=== PATIENT | female | born 1955 | race Caucasian/White ===

== ENCOUNTER 2017-06-21 08:19 | Outpatient (CLI) | payer BC | END 2017-06-21 08:20 | disposition home or self-care (01) | LOC: BICMAMMO 08:19 | PROVIDERS: ATTEND Family Medicine | DX: Z12.31 Encounter for screening mammogram for malignant neoplasm of breast (principal); R92.1 Mammographic calcification found on diagnostic imaging of breast | CPT/HCPCS: 77063; 77067 ==

== ENCOUNTER 2017-09-17 18:20 | Observation (INO) | payer BC ==
[2017-09-17 19:01] VITALS: BMI 22.4
--- NOTE | 2017-09-17 21:28 | PDOC.FPRHP ---
- History of Present Illness Chief Complaint: Headache History of Present Illness: 62 year old female presents with a 3 day history of gradually worsening SAN described as a pressure-like pain in the maxillary region and behind the eyes. The pain got as bad as a 10/10 today which prompted her visit to the outside ER. She failed outpatient treatment with tylenol and advil. After administration of toradol, reglan, and fluids, the patient's pain decreased to a 2/10. The pain is gradually increasing with time. Patient states the she does not get headaches very often. She has had several sinus infections in the past, and this done seem similar in terms of the pain. Additionally, patient recently saw the dentist who determined that she would need a root canal. She has been on amoxicillin since Monday. Patient had some mild nausea which resolved after being given the medications in outside ER as well as fluids. In outside ED, patient was found to be tachycardic to the 130's. Despite 3L of fluid, the HR remained elevated in the 120's. Patient states she has had elevated HR in the past, but it has never persisted like this previously. Patient denies any past history of thyroid dysfunction. - Allergies/Adverse Reactions Allergies Allergy/AdvReac Type Severity Reaction Status Date / Time Sulfa (Sulfonamide Allergy Verified 09/17/17 19:22 Antibiotics) - Home Medications Medication Instructions Recorded Confirmed Type Dapagliflozin/Metformin HCl 1 tab PO BID-AC 09/17/17 09/17/17 History [Xigduo Xr 5 mg-1,000 mg Tablet] - History PMHx: Type II DM PSHx: Tonsillectomy FHx: Adopted and thinks biological mother has history of CVA Social: Denies alcohol, tobacco or drug use. - Review of Systems General: denies: fever/chills, weight/appetite/sleep changes Eyes: denies: eye pain, vision changes ENT: reports: other. denies: nasal congestion Respiratory: denies: cough, congestion Cardiovascular: denies: chest pain, palpitation, edema Gastrointestinal: reports: nausea. denies: vomiting, diarrhea, constipation, abdominal pain Genitourinary: denies: dysuria, polyuria Skin: denies: rashes, lesions, jaundice Musculoskeletal: denies: tenderness Neurological: reports: other (Headache x3 days.). denies: syncope, seizure Psychological: denies: anxiety, depression - Vital signs BP: [141/72] HR: [115] RR: [16] Tmax: [100.0 F] Pox: [92]% on [RA] Wt: [66 kg ] - Physical Exam Constitutional: NAD, awake, alert and oriented, well developed HEENT: normocephalic and atraumatic -HEENT: Tender to palpation over maxillary sinuses. Right pupil non-reactive to light, fixed and dilated. Neck: supple Heart: no murmurs/rubs/gallops -Heart: Tachycardic Lungs: CTAB, no respiratory distress, good air movement, no rales/rhonchi Abdomen: soft, non-tender, bowel sounds present, no masses/distention Musculoskeletal: normal structure, normal tone Neurological: no focal deficit, CN II-XII intact Skin: no rash/lesions, good turgor, capillary refill <2 seconds Heme/Lymphatic: no unusual bruising or bleeding, no purpura, no petechia Psychiatric: normal mood and affect, good judgment and insight, intact recent and remote memory FMR H&P: Results - Labs Additional comment: CBC wnl CMP wnl EKG sinus tachycardia, incomplete RBBB UA negative Troponin negative - Radiology Interpretation CT scan - head Status: report reviewed by me Additional comment: No evidence of acute intracranial bleed. Did not comment on sinuses. FMR H&P: A/P - Problem List (1) Headache Current Visit: Yes Status: Acute Code(s): R51 - HEADACHE Qualifiers: Headache type: unspecified Headache chronicity pattern: acute headache Intractability: not intractable Qualified Code(s): R51 - Headache (2) Tachycardia Current Visit: Yes Status: Acute Code(s): R00.0 - TACHYCARDIA, UNSPECIFIED (3) Type II diabetes mellitus Current Visit: Yes Status: Acute Qualifiers: Diabetes mellitus correction insulin use: without intermodal dispatcher use - Plan 1. Persistent tachycardia - Sinus rhythm with incomplete RBBB - Asymptomatic - No cardiac history - Consider consulting cards in AM - Telemetry monitoring - TSH pending - CBC wnl 2. Headache, suspect sinus headache vs. tension vs. migraine - Improved with toradol, reglan, and fluids - Will continue toradol and reglan for symptomatic treatment - Patient currently on amoxicillin for tooth infection (in need of root canal) - CT of brain did not comment on sinuses 3. Type II DM - Continue home medication 4. DVT ppx: SCDs 5. Code status: Full Disposition/LOS: Dispo: Admit to telemetry for observation. Consider dispo tomorrow pending cardiology recs. FMR H&P: Upper Level - Pertinent history 62 yo female with hx of diabetes presents after she had persistent severe headache for appx 3 days. She has no hx of tachycardia or palpitations. She had frontal, bilateral pulsing headache that improved with benadryl, toradol, and reglan. She was found to have sinus tachycardia that did not improve with fluids. - Pertinent findings Gen: WD/WN in no acute distress HEENT: NC/AT, JESUS,EOMI, MMM Resp: CTA, normal work of breathing CV: tachycardic, normal S1, S2, no murmur ABD: Soft nontender, nondistended Extremities: no edema, pulses 2+ Psych: calm, normal affect and mood Neuro: strength, sensation normal. DTR 2+ Hgb 14.5 Trop neg x2 BMP negative (see scanned report from outside ER) - Plan Date/Time: 09/17/172127 ILebron, have evaluated this patient and agree with findings/plan as outlined by business intern resident. Pertinent changes/additions are listed here. Attending Addendum - Attending Addendum Date/Time: 09/17/17 [id number] I personally evaluated the patient and discussed the management with Dr. Stein. The H&P is repeated by me. I agree with the History, Examination, Assessment and Plan documented above with any addition or exceptions noted below.
[2017-09-17] MEDS ORDERED: Dextrose 50% Abboject 50 ML SYRINGE SLOW IVP PRN (21:50)
[2017-09-17] MEDS ORDERED: Acetaminophen 325 MG TAB PO PRN (21:50)
[2017-09-17] MEDS ORDERED: Dextrose 5% in Water 1,000 ML IV PRN (21:50)
[2017-09-17] MEDS ORDERED: HumaLOG 300 UNITS/3 ML VIAL SC PRN (21:50)
[2017-09-17] MEDS ORDERED: Ondansetron ODT 4 MG TAB PO PRN (21:50)
[2017-09-17] MEDS: Ketorolac Tromethamine 30 MG/ML VIAL IVP PRN (22:45)
[2017-09-18] MEDS: Ketorolac Tromethamine 30 MG/ML VIAL IVP PRN ×2 (06:06→11:29)
[2017-09-18 07:02] LABS: #Eosinphils 0.1 thou/uL (0.0-0.7); #Lymphocytes 0.9 thou/uL (1.20-3.40); #Monocytes 0.7 thou/uL (0.11-0.59); #Neutrophils 8.3 thou/uL (1.40-6.50); %Basophils 0.5 % (0.0-1.0); %Eosinophils 0.8 % (0.0-10.0); %Lymphocytes 8.7 % (21.0-51.0); %Monocytes 6.5 % (0.0-10.0); %Neutrophils 83.5 % (42.0-75.0); Hemoglobin 13.4 g/dL (12.0-16.0); Mean Corpuscular HGB CONC 33.7 g/dL (32.0-36.0); Mean Corpuscular Hemoglobin 31.6 pg (27.0-31.0); Mean Corpuscular Volume 93.9 fl (81.0-99.0); Mean Platelet Volume 6.7 fL (7.4-10.4); Platelet Count 251 thou/uL (130-400); RBC Distribution Width 11.7 % (11.5-14.5); Red Blood Cell (RBC) Count 4.25 mill/uL (4.20-5.40); White Blood Cell (WBC) Count 9.9 thou/uL (4.8-10.8)
[2017-09-18 07:16] LABS: Anion Gap 14 mmol/L (10-20); BUN (Urea Nitrogen) 13 mg/dL (9.8-20.1); Calc. Creatinine Clearance 74 mL/min (70-130); Calcium 8.9 mg/dL (7.8-10.44); Carbon Dioxide 25 mmol/L (23-31); Chloride 101 mmol/L (98-107); Estimated GFR-MDRD 71; Glucose 121 mg/dL (80-115); Potassium 3.7 mmol/L (3.5-5.1); Sodium 136 mmol/L (136-145)
[2017-09-18] MEDS: Metoclopramide HCl 10 MG/2 ML VIAL IVP PRN ×2 (08:25→14:19)
--- NOTE | 2017-09-18 09:11 | PDOC.FM ---
- Subjective Subjective: No acute events overnight. Pt does report persistent headache worse on the left retro-orbital and relieved by toradol and reglan. She does c/o of lower jaw pain and sinus pain which she also describes as a "headache." Associated photophobia and phonophobia. This pain has also improved with current medications. She denies vision changes, sob, pleuritic type pain, abd pain, cp, palpitations, nvdc. - Objective Vital Signs & Weight: Vital Signs (12 hours) Temp Pulse Resp BP BP Pulse Ox 09/18/17 07:21 99.6 F 115 H 16 131/66 93 L 09/18/17 04:01 99.1 F 115 H 18 118/67 95 Weight Weight 65.952 kg Result Diagrams: 09/18/17 06:54 09/18/17 06:54 <Demetrius Beth - Last Filed: 09/18/17 09:13> - Objective Vital Signs & Weight: Vital Signs (12 hours) Temp Pulse Resp BP BP Pulse Ox 09/18/17 08:25 99.6 F 115 H 16 09/18/17 07:21 99.6 F 115 H 16 131/66 93 L 09/18/17 04:01 99.1 F 115 H 18 118/67 95 Weight Weight 65.952 kg Result Diagrams: 09/18/17 06:54 09/18/17 06:54 <Aris Garcia - Last Filed: 09/18/17 11:54> Phys Exam - Physical Examination Constitutional: NAD HEENT: PERRLA, moist MMs, sclera anicteric, 2+ tonsils Neck: no nodes, no JVD Respiratory: no wheezing, no rales, no rhonchi, clear to auscultation bilateral Cardiovascular: no significant murmur, no rub tachycardic Gastrointestinal: soft, non-tender, no distention, positive bowel sounds Musculoskeletal: no edema, pulses present Neurological: non-focal, normal sensation, moves all 4 limbs Lymphatic: no nodes Skin: no rash <Demetrius Beth - Last Filed: 09/18/17 09:13> Dx/Plan (1) Headache Code(s): R51 - HEADACHE Status: Acute QualifierTitle: Headache type: unspecified Headache chronicity pattern: acute headache Intractability: not intractable Qualified Code(s): R51 - Headache (2) Tachycardia Code(s): R00.0 - TACHYCARDIA, UNSPECIFIED Status: Acute (3) Type II diabetes mellitus Status: Acute QualifierTitle: Diabetes mellitus nursing home insulin use: without nursing home use - Plan Plan: 1. Headache, suspect sinus headache vs. cluster vs. migraine - Improved with toradol, reglan, and fluids - cont toradol reglan prn for pain - Pt currently on amoxicillin by dentist for oral infection; unfortunately, no comment on sinuses from CT report. 2. Persistent tachycardia - Sinus rhythm with incomplete RBBB - Pt is asymptomatic and has remained in sinus tach overnight on telemtry with occasional/sporadic PVCs -She has Tmax of 100 and is satting 92-95 on RA. She denies pleuritic type pain , sob and pain with deep inspiration 3. Type II DM - Continue home medication, no changes <Demetrius Beth - Last Filed: 09/18/17 09:13> Attending Addendum - Attending Addendum Date/Time: 09/18/17 1151 I personally evaluated the patient and discussed the management with Dr. Beth. I agree with the History, Examination, Assessment and Plan documented above with any addition or exceptions noted below. Patient here with improved headache. She will continue on current meds for control. She has multiple reasons to have headache including sinus disease and likely sinus infection, as well as L sided tooth pain that is being evaluated by her outpatient dentist. Will expand abx coverage to augmentin to help cover both issues. She continues to be tachycardic, and O2 sats are low 90s. Outpatient PCP shows HR 90-100s in recent clinic visits. Wells criteria 1.5, will check D-dimer and go from there. If PE excluded, patient should be stable for discharge for further workup in outpatient setting. EKG reviewed and there is no major evidence of RBBB, only sinus tachycardia. <Aris Garcia - Last Filed: 09/18/17 11:54>
[2017-09-18 12:31] LABS: CKMB 0.4 ng/mL (0-6.6); Troponin I Less than 0.010 ng/mL (< 0.028)
[2017-09-18 15:45] VITALS: BP 138/70; TEMP 99.3
[2017-09-18] MEDS ORDERED: Amoxicillin/Potassium Clav 500 MG TAB PO SCH (21:00)
--- NOTE | 2017-09-19 12:10 | DIS-2 ---
DATE OF SERVICE: 09/18/2017 LOCATION: [facility] in [place], [place] DATE OF ADMISSION: 09/17/2017 DATE OF DISCHARGE: 09/18/2017 RESIDENT PHYSICIAN: Demetrius Beth DO ADMITTING ATTENDING: Raf Jara MD DISCHARGE ATTENDING: Aris Garcia MD CONSULTS: None. PROCEDURES: None. PRIMARY DIAGNOSIS: Headache. SECONDARY DIAGNOSES: 1. Type 2 diabetes. 2. Dental infection. 3. Sinus tachycardia. DISCHARGE MEDICATIONS: 1. Tylenol 650 mg p.o. q.4 hours. 2. Augmentin 500 mg p.o. q.12 hours x7 days. 3. Xigduo 1 tab p.o. b.i.d. 4. Ibuprofen 800 mg p.o. q.8 hours p.r.n. for pain. DISCONTINUED MEDICATION: Amoxicillin. HISTORY OF PRESENT ILLNESS AND HOSPITAL COURSE: The patient is a 62-year-old female who originally p resented to the ED for a 3-day history of gradually worsening headache described as pressure-like donaldo n that was predominantly in the maxillary region and somewhat behind the eyes. The pain was describe d as 10/10, at which point she presented to the ED, she had attempted to take a Tylenol or Advil for her headache. However, this stopped, did not reduce her pain. On presentation to the ED, she was gi lizzy Toradol, Reglan, and fluids, at which point the patient's pain decreased to 2/10. She does repor t a history of sinus infections in the past and at the time of presentation, the quality and location of the pain seems similar in terms of her sinus headaches in the past. Importantly, she denies any nuchal rigidity, no decreased range of motion of her neck. There is no change in vision. The patien t is admitted for observation. Her pain was controlled with Reglan and Toradol, and subsequently req uired less of those medications and her pain was controlled on ibuprofen, Tylenol. On discharge, she denies any vision changes, shortness of breath, or nuchal rigidity. She additionally endorsed some jaw pain associated with headache which she was started previously on amoxicillin by a dentist for an oral infection which when we switched to Augmentin for better coverage of the infection. Overall, t he patient had uncomplicated hospital course. Pain was adequately controlled with Tylenol. Patient will discharged with instructions to follow up with her primary care provider within a week following discharge. DISPOSITION: The patient left the hospital in stable condition. DISCHARGE INSTRUCTIONS: 1. Location: Home. 2. Diet: Heart healthy, consistent carbohydrates. 3. Activity: Ad wolfgang. 4. Followup: Follow up with Dr. Gomes, primary care provider in 7-10 days following discharge.
== END 2017-09-18 16:30 | disposition home or self-care (01) ==
LOC: 2SW 18:28
PROVIDERS: ADMIT Family Medicine; ATTEND Family Medicine
DX: R00.0 Tachycardia, unspecified; E11.9 Type 2 diabetes mellitus without complications; Z79.84 Long term (current) use of oral hypoglycemic drugs; R51 Headache; Z90.89 Acquired absence of other organs; Z88.5 Allergy status to narcotic agent
CPT/HCPCS: 36415; 36416; 80048; 82553; 84443; 84484; 85025; 85379; 90471; 90732; 96374; 96375; 96376; G0009; G0378; J1885; J2765

== ENCOUNTER 2017-09-20 18:35 | Inpatient (IN) | payer BC ==
[2017-09-20] MEDS ORDERED: Acetaminophen 500 MG TAB ONE (18:42)
[2017-09-20 19:04] LABS: #Lymphocytes 1.4 thou/uL (1.20-3.40); #Monocytes 0.7 thou/uL (0.11-0.59); %Basophils 0.3 % (0.0-1.0); %Eosinophils 0.4 % (0.0-10.0); %Lymphocytes 13.3 % (21.0-51.0); %Monocytes 7.1 % (0.0-10.0); %Neutrophils 78.9 % (42.0-75.0); Hemoglobin 15.7 g/dL (12.0-16.0); Mean Corpuscular HGB CONC 34.8 g/dL (32.0-36.0); Mean Corpuscular Hemoglobin 31.9 pg (27.0-31.0); Mean Corpuscular Volume 91.4 fl (81.0-99.0); Mean Platelet Volume 6.8 fL (7.4-10.4); Platelet Count 307 thou/uL (130-400); RBC Distribution Width 11.5 % (11.5-14.5); Red Blood Cell (RBC) Count 4.91 mill/uL (4.20-5.40); White Blood Cell (WBC) Count 10.1 thou/uL (4.8-10.8)
[2017-09-20] MEDS ORDERED: Dexamethasone 10 MG/ML VIAL ONE (19:18)
[2017-09-20] MEDS ORDERED: cefTRIAXone\\ROCEPHIN 2 GM VIAL ONE (19:18)
[2017-09-20 19:19] LABS: ALT (SGPT) 16 U/L (8-55); AST (SGOT) 15 U/L (5-34); Albumin 4.7 g/dL (3.4-4.8); Alkaline Phosphatase 119 U/L (40-150); Anion Gap 16 mmol/L (10-20); BUN (Urea Nitrogen) 17 mg/dL (9.8-20.1); Bilirubin, Total 0.6 mg/dL (0.2-1.2); Calc. Creatinine Clearance 0 mL/min (70-130); Calcium 10.1 mg/dL (7.8-10.44); Carbon Dioxide 29 mmol/L (23-31); Chloride 92 mmol/L (98-107); Estimated GFR-MDRD 53; Globulin 3.5 g/dL (2.4-3.5); Glucose 117 mg/dL (80-115); Potassium 3.7 mmol/L (3.5-5.1); Protein, Total 8.2 g/dL (6.0-8.3); Sodium 133 mmol/L (136-145)
[2017-09-20 19:23] LABS: CKMB 0.4 ng/mL (0-6.6); Troponin I Less than 0.010 ng/mL (< 0.028)
[2017-09-20 19:33] LABS: Base Excess-Venous 4.3 mmol/L (0 (+/- 2.5)); Bicarbonate (HCO3v) 28.7 mmol/L (1.0-85.0); CO2 Tension (PvCO2) 40.8 mmHg (41.0-51.0); Calcium, Ionized 0.96 mmol/L (1.12-1.32); Hemoglobin - Calc 17.2 g/dL (12.0-18.0); O2 Tension (PvO2) 29.5 mmHg (35.0-45.0); Potassium 3.7 mmol/L (3.4-4.7); T. Carbon Dioxide 29.9 mmol/L (1.0-85.0); pH (Venous) 7.455 (7.35-7.45); vO2 Saturation-calc 59.6 % (94-98)
--- NOTE | 2017-09-20 20:05 | CT ---
BRAIN CT WITHOUT IV CONTRAST: 09/20/17 HISTORY: 62-year-old female with history of fever and headache, weakness and lethargy. No focal mass or midline shift. No intra or extra-axial hemorrhage. Sinuses and mastoids are clear. IMPRESSION: No acute intracranial process. No mass or bleed. POS: [facility]
[2017-09-20] MEDS ORDERED: Morphine 5 MG/ML SYRINGE ONE (20:11)
[2017-09-20] MEDS ORDERED: Ondansetron HCl/PF 4 MG/2 ML Vial ONE (20:11)
[2017-09-20] MEDS ORDERED: Lorazepam 2 MG/ML VIAL ONE (20:11)
[2017-09-20] MEDS ORDERED: Morphine 10 MG/ML VIAL ONE (20:12)
--- NOTE | 2017-09-20 20:19 | RAD ---
UPRIGHT PORTABLE CHEST ONE VIEW: 09/20/17 HISTORY: 62-year-old female with history of fever and headache, lethargy. COMPARISON: 02/25/03. FINDINGS: Monitor leads overlie the chest. Heart size is normal. The lungs are clear. IMPRESSION: No acute intrathoracic disease. Stable from prior study. POS: [facility]
[2017-09-20 20:20] LABS: Bilirubin Negative (Negative); Blood, Urine Small (Negative); Clarity CLEAR (Clear); Glucose, Urine (Dipstick) >=1000 mg/dL (Negative); Leukocyte Negative (Negative); Nitrite Negative (Negative); Protein, Urine (Dipstick) Negative (Neg-Trace); Specific Gravity, Urine 1.028 (1.002-1.036); Urobilinogen 0.2 mg/dL (0.2-1.0)
[2017-09-20 20:22] LABS: Bacteria/HPF None Seen HPF (None Seen); Hyaline Casts/LPF 0-3 HYALINE CAST LPF (0-3 Hyaline); Pathc Cast-AUWi Flag 0.14 (0-2.49); RBC/HPF 0-3 HPF (0-3); Squamous Epithelial None Seen HPF (0-3); WBC/HPF 0-3 HPF (0-3)
[2017-09-20 21:46] LABS: CSF Source CSF; Clarity Clear (Clear); Color Of CSF Supernatant COLORLESS (Colorless); Tube # 1; Tube # 2; Unspun CSF Color COLORLESS (Colorless)
[2017-09-20 21:59] LABS: RBC Count - Manual 2 /cumm (None Seen); WBC/NonHematics Count - Manual 61 /cumm (0-5)
[2017-09-20 22:03] LABS: CSF Source CSF; Clarity Clear (Clear); Tube # 4
[2017-09-20 22:09] LABS: RBC Count - Manual 2 /cumm (None Seen); WBC/NonHematics Count - Manual 80 /cumm (0-5)
[2017-09-20 22:30] LABS: Cell Count Non Hematic 24 %; Lymphocytes 65 %; Segmented Neutrophils 11 %
[2017-09-20 22:31] LABS: Cell Count Non Hematic 15 %; Lymphocytes 80 %; Segmented Neutrophils 5 %
[2017-09-20 23:19] LABS: CSF, Glucose 86 mg/dl (40-70); CSF, Protein 97 mg/dL (15-40)
--- NOTE | 2017-09-20 23:22 | PDOC.FPRHP ---
- History of Present Illness Chief Complaint: Headache History of Present Illness: Patient presents to the ED with 3-4d of headache. Pertinent PMH including DM2. She was discharged on 09/18 after being evaluated for tachycardia and headache. She states her headache was better when she left the hospital but acutely worsened today at about 10:30 PM. She denies any SAN at time of exam, 0/10, but on initial presentation to the ER was complaining of severe pain described as pressure. She states she has new onset neck stiffness which started tonight. She denies any focal weakness, no visual changes, no sensitivity to light, no N/ V. She denies any speech slurring but did have some dizziness. She tried advil at home but this did not relieve her pain. ED Course: Patient had a spinal tap and brain CT. She was given vancomycin, rocephin, decadron, tylenol, NS, morphine, zofran, and ativan. - Allergies/Adverse Reactions Allergies Allergy/AdvReac Type Severity Reaction Status Date / Time Sulfa (Sulfonamide Allergy Verified 09/17/17 19:22 Antibiotics) - Home Medications Medication Instructions Recorded Confirmed Type Dapagliflozin/Metformin HCl 1 tab PO BID-AC 09/17/17 09/21/17 History [Xigduo Xr 5 mg-1,000 mg Tablet] Acetaminophen [Tylenol Regular 650 mg PO Q4H PRN tab 09/18/17 09/21/17 Rx Strength] Amoxicillin/Potassium Clav 500 mg PO Q12HR #14 tab 09/18/17 Rx [Augmentin] Ibuprofen 800 mg PO Q8HR PRN #30 tablet 09/18/17 09/21/17 Rx Metoclopramide HCl [Reglan] 10 mg PO QID PRN #30 tab 09/18/17 Rx - History PMHx: Type II DM PSHx: Tonsillectomy FHx: Adopted and thinks biological mother has history of CVA Social: Denies alcohol, tobacco or drug use. - Review of Systems General: reports: fever/chills, fatigue. denies: weight/appetite/sleep changes , night sweats Eyes: denies: eye pain, vision changes ENT: denies: nasal congestion, rhinorrhea Respiratory: denies: cough, congestion, shortness of breath Cardiovascular: denies: chest pain, palpitation, orthopnea Gastrointestinal: denies: nausea, vomiting, diarrhea, abdominal pain, GI bleeding Genitourinary: denies: dysuria, polyuria Skin: denies: rashes, lesions, itching Musculoskeletal: denies: pain, tenderness, arthritis/arthralgias Neurological: denies: numbness, syncope, weakness Psychological: denies: anxiety, depression - Vital signs BP: 133/87 HR: 128 RR: 18 Tmax: 102.6 Pox: 95% on room air Wt: 56 - Physical Exam Constitutional: NAD, awake, alert and oriented -Constitutional: drowsy at time of examination but A&Ox3 HEENT: normocephalic and atraumatic, PERRLA, EOMI, grossly normal vision, TM's clear and intact, MMM, oropharynx clear -Neck: bends neck to 45 degrees, cannot touch chin to chest Heart: RRR, normal S1/S2, no murmurs/rubs/gallops Lungs: CTAB, no respiratory distress Abdomen: soft, bowel sounds present, no masses/distention Musculoskeletal: normal structure, ROM grossly normal Neurological: no focal deficit, CN II-XII intact, normal sensation -Neurological: cannot touch chin to chest No pain with passive leg raise Skin: no rash/lesions, good turgor, capillary refill <2 seconds -Skin: no genital or oral lesions Heme/Lymphatic: no unusual bruising or bleeding, no purpura Psychiatric: normal mood and affect FMR H&P: Results - Labs Result Diagrams: 09/21/17 04:39 09/21/17 04:39 Lab results: WBC 10.1 thou/uL (4.8-10.8) 09/20/17 18:52 Hgb 15.7 g/dL (12.0-16.0) 09/20/17 18:52 Hct 44.9 % (36.0-47.0) 09/20/17 18:52 MCV 91.4 fl (81.0-99.0) 09/20/17 18:52 Plt Count 307 thou/uL (130-400) 09/20/17 18:52 Neutrophils % 78.9 % (42.0-75.0) H 09/20/17 18:52 VBG pCO2 40.8 mmHg (41.0-51.0) L 09/20/17 19:30 VBG pO2 29.5 mmHg (35.0-45.0) L 09/20/17 19:30 Sodium 133 mmol/L (136-145) L 09/20/17 18:52 Potassium 3.7 mmol/L (3.5-5.1) 09/20/17 18:52 Chloride 92 mmol/L (98-107) L 09/20/17 18:52 Carbon Dioxide 29 mmol/L (23-31) 09/20/17 18:52 BUN 17 mg/dL (9.8-20.1) 09/20/17 18:52 Creatinine 1.06 mg/dL (0.6-1.1) 09/20/17 18:52 Glucose 117 mg/dL (80-115) H 09/20/17 18:52 Lactic Acid 1.3 mmol/L (0.5-2.2) 09/20/17 19:10 Calcium 10.1 mg/dL (7.8-10.44) 09/20/17 18:52 Total Bilirubin 0.6 mg/dL (0.2-1.2) 09/20/17 18:52 AST 15 U/L (5-34) 09/20/17 18:52 ALT 16 U/L (8-55) 09/20/17 18:52 Alkaline Phosphatase 119 U/L (40-150) 09/20/17 18:52 Ammonia 16 umol/L (18-72) L 09/20/17 19:19 CK-MB (CK-2) 0.4 ng/mL (0-6.6) 09/20/17 18:52 Serum Total Protein 8.2 g/dL (6.0-8.3) 09/20/17 18:52 Albumin 4.7 g/dL (3.4-4.8) 09/20/17 18:52 Urine Ketones 80 mg/dL (Negative) H 09/20/17 20:05 Urine Blood Small (Negative) H 09/20/17 20:05 Urine Nitrite Negative (Negative) 09/20/17 20:05 Ur Leukocyte Esterase Negative (Negative) 09/20/17 20:05 Urine RBC 0-3 HPF (0-3) 09/20/17 20:05 Urine WBC 0-3 HPF (0-3) 09/20/17 20:05 Ur Squamous Epith Cells None Seen HPF (0-3) 09/20/17 20:05 Urine Bacteria None Seen HPF (None Seen) 09/20/17 20:05 Laboratory Tests 09/20/17 09/20/17 09/20/17 19:30 20:05 21:20 POC VBG pH 7.455 H VBG pCO2 40.8 L Urine Nitrite Negative Ur Leukocyte Esterase Negative Fluid Tube Number Fluid Color Fluid Clarity Fluid WBC (Manual) Fluid RBC (Manual) Fluid Seg Neutrophil % CSF Glucose 86 H CSF Total Protein 97 H 09/20/17 21:20 POC VBG pH VBG pCO2 Urine Nitrite Ur Leukocyte Esterase Fluid Tube Number 4 Fluid Color Colorless Fluid Clarity Clear Fluid WBC (Manual) 80 H Fluid RBC (Manual) 2 H Fluid Seg Neutrophil % 11 CSF Glucose CSF Total Protein - Radiology Interpretation CT scan - head Status: image reviewed by me, report reviewed by me Additional comment: No acute process. FMR H&P: A/P - Problem List (1) Viral meningitis Current Visit: Yes Status: Acute Code(s): A87.9 - VIRAL MENINGITIS, UNSPECIFIED (2) Sinus tachycardia Current Visit: Yes Status: Acute Code(s): R00.0 - TACHYCARDIA, UNSPECIFIED (3) Dental infection Current Visit: Yes Status: Acute Code(s): K04.7 - PERIAPICAL ABSCESS WITHOUT SINUS (4) Type II diabetes mellitus Current Visit: No Status: Chronic Qualifiers: Diabetes mellitus terminal worker insulin use: without terminal worker use Diabetes mellitus complication status: with hyperglycemia Qualified Code(s): E11.65 - Type 2 diabetes mellitus with hyperglycemia - Plan # Viral meningitis - CSF WBC 81, Prot 97, Glu 87, Lymph 80% - unlikely bacterial based on CSF, check gram stain -received vanc, rocephin, decadron in ED - CT head negative - HSV/Enterovirus PCR pending - blood, urine, CSF cultures pending - Acyclovir 10mg/kg q8hrs until PCR negative -no Hx of HSV, no genital/oral lesions, no recent travel, sick contacts, or new sexual partners # Tachycardia - NS 100ml/hr - evaluated on last admit, sinus rhythm with incomplete RBB # Dental Infection - continue Augmentin - outpatient dental f/u # DM2 - home meds # PPx - lovenox # Code - full Disposition/LOS: inpatient, likely 3 midnight. PCP: Dr. Ary Gomes FMR H&P: Upper Level - Pertinent history 62 yo female has intermittent, but recurrent headache for about a week but came in tonight when her neck became stiff and she developed a fever. She was admitted for sinus tachycardia 2 days ago after she was treated in an outside ER for a migraine/tension type headache. She denies focal weakness, n/v/d. She denies vision changes. - Pertinent findings Gen: WD/WN female in no acute distress HEENT: NC/AT, JESUS,EOMI, MMM, patient can move neck appx 30 degrees in flexion and extension Resp: CTA, normal work of breathing CV: RRR, normal S1, S2, no murmur ABD: Soft nontender, nondistended Extremities: no edema, pulses 2+ Psych: calm, normal affect and mood Neuro: mild nuchal rigidity, normal strength and sensation, normal CN exam - Plan Date/Time: 09/20/17 2010 ILebron, have evaluated this patient and agree with findings/plan as outlined by international trade manager resident. Pertinent changes/additions are listed here. # Viral meningitis- Agree with decision for initial abx as tests pending but with elevated but not extremely high WBC, a high glucose and high protein, CSF is consistent with viral rather than bacterial. Will review gram stains and continue abx if indicated. Will treat with acyclovir until PCR is negative event though patient does not have risk factors. Will continue fluids and fever management. Blood cultures pending # Sinus Tachycardia- likely from infection, but was present last admission without apparent infection. # Dental Infection- continue outpatient abx. Attending Addendum - Attending Addendum Date/Time: 09/21/17 0712 I personally evaluated the patient and discussed the management with Dr. Ortez. I agree with the History, Examination, Assessment and Plan documented above with any addition or exceptions noted below. Start acyclovir, CSF labs for viral identification pending.
[2017-09-21] MEDS ORDERED: Metoclopramide HCl 10 MG TAB PO PRN (00:09)
[2017-09-21] MEDS ORDERED: Dextrose 5% in Water 1,000 ML IV PRN (00:09)
[2017-09-21] MEDS ORDERED: HumaLOG 300 UNITS/3 ML VIAL SC PRN (00:09)
[2017-09-21] MEDS ORDERED: Dextrose 50% Abboject 50 ML SYRINGE SLOW IVP PRN (00:09)
[2017-09-21] MEDS ORDERED: Ondansetron ODT 4 MG TAB PO PRN (00:09)
[2017-09-21 00:35] VITALS: BMI 21.0
[2017-09-21] MEDS: Sodium Chloride 0.9% 1,000 ML IV SCH ×3 (00:52→21:51)
[2017-09-21 05:22] LABS: #Lymphocytes 0.9 thou/uL (1.20-3.40); #Monocytes 0.3 thou/uL (0.11-0.59); #Neutrophils 6.4 thou/uL (1.40-6.50); %Basophils 0.2 % (0.0-1.0); %Monocytes 3.3 % (0.0-10.0); %Neutrophils 84.4 % (42.0-75.0); Hemoglobin 14.4 g/dL (12.0-16.0); Mean Corpuscular Hemoglobin 32.8 pg (27.0-31.0); Mean Corpuscular Volume 93.8 fl (81.0-99.0); Mean Platelet Volume 6.9 fL (7.4-10.4); Platelet Count 269 thou/uL (130-400); RBC Distribution Width 11.4 % (11.5-14.5); White Blood Cell (WBC) Count 7.5 thou/uL (4.8-10.8)
[2017-09-21 05:32] LABS: Anion Gap 9 mmol/L (10-20); BUN (Urea Nitrogen) 21 mg/dL (9.8-20.1); Calc. Creatinine Clearance 70 mL/min (70-130); Calcium 9.2 mg/dL (7.8-10.44); Carbon Dioxide 32 mmol/L (23-31); Chloride 100 mmol/L (98-107); Estimated GFR-MDRD 73; Glucose 160 mg/dL (80-115); Potassium 4.3 mmol/L (3.5-5.1); Sodium 137 mmol/L (136-145)
[2017-09-21] MEDS ORDERED: Dapagliflozin/Metformin Hcl [Xigduo Xr 5 Mg-1,000 Mg Tablet] PO SCH (07:30)
[2017-09-21] MEDS: Enoxaparin Sodium 40 MG/0.4 ML SYRINGE SC SCH (08:39)
[2017-09-21] MEDS: Amoxicillin/Potassium Clav 500 MG TAB PO SCH ×2 (08:39→20:10)
--- NOTE | 2017-09-21 09:20 | PDOC.FM ---
- Subjective Subjective: No acute events overnight. Pt reports her headache a 1/10 currently and states she has improved ROM in neck. Has some ttp of neck. Negative brudzinski. Denies weakness, changes in vision, cp, sob. Denies recent viral illness. She does have exposure to livestock (specifically hoarses) and a history of "fever blisters." Does not recall any exposure to mosquito bites. ED Tmax 102.6. - Objective Vital Signs & Weight: Vital Signs (12 hours) Temp Pulse Resp BP Pulse Ox 09/21/17 08:00 98.0 F 113 H 18 115/70 94 L 09/21/17 05:00 97.7 F 96 18 110/65 94 L 09/21/17 04:00 94 L 09/21/17 01:50 97.7 F 102 H 14 94 L 09/21/17 00:09 97.7 F 102 H 14 132/84 94 L I&O: 09/20/17 09/21/17 09/22/17 06:59 06:59 06:59 Intake Total 587 Balance 587 Result Diagrams: 09/21/17 04:39 09/21/17 04:39 <Demetrius Beth - Last Filed: 09/21/17 09:18> - Objective Vital Signs & Weight: Vital Signs (12 hours) Temp Pulse Resp BP Pulse Ox 09/21/17 11:28 97.7 F 110 H 18 111/71 95 09/21/17 08:00 98.0 F 113 H 18 115/70 94 L 09/21/17 05:00 97.7 F 96 18 110/65 94 L 09/21/17 04:00 94 L 09/21/17 01:50 97.7 F 102 H 14 94 L 09/21/17 00:09 97.7 F 102 H 14 132/84 94 L I&O: 09/20/17 09/21/17 09/22/17 06:59 06:59 06:59 Intake Total 587 Balance 587 Result Diagrams: 09/21/17 04:39 09/21/17 04:39 <Aris Garcia - Last Filed: 09/21/17 12:01> Phys Exam - Physical Examination Constitutional: NAD HEENT: PERRLA, sclera anicteric Neck: no nodes, no JVD Respiratory: no wheezing, no rales, no rhonchi, clear to auscultation bilateral Cardiovascular: RRR, no significant murmur, no rub Gastrointestinal: soft, non-tender, no distention, positive bowel sounds Musculoskeletal: no edema, pulses present Neurological: non-focal, normal sensation, moves all 4 limbs no evidence of nuchal rigidity, negativ brudzinski Skin: no rash <Demetrius Beth - Last Filed: 09/21/17 09:18> Dx/Plan (1) Viral meningitis Code(s): A87.9 - VIRAL MENINGITIS, UNSPECIFIED Status: Acute (2) Headache Code(s): R51 - HEADACHE Status: Acute QualifierTitle: Headache type: unspecified Headache chronicity pattern: acute headache Intractability: not intractable Qualified Code(s): R51 - Headache (3) Tachycardia Code(s): R00.0 - TACHYCARDIA, UNSPECIFIED Status: Acute (4) Type II diabetes mellitus Status: Chronic QualifierTitle: Diabetes mellitus director long term care insulin use: without director long term care use Diabetes mellitus complication status: with hyperglycemia Qualified Code (s): E11.65 - Type 2 diabetes mellitus with hyperglycemia (5) Dental infection Code(s): K04.7 - PERIAPICAL ABSCESS WITHOUT SINUS Status: Acute - Plan Plan: 1) Viral meningitis - CSF WBC 81, Prot 97, Glu 87, Lymph 80% - unlikely bacterial based on CSF, gram stain pending -Viral studies pending - blood, urine, CSF cultures pending - cont acyclovir -decadron 8mg qid 2) Tachycardia - NS 100ml/hr -possibly 2/2 above 3) Dental Infection - continue Augmentin -OP f/u 4) DM2 - home meds <Demetrius Beth - Last Filed: 09/21/17 09:18> Attending Addendum - Attending Addendum Date/Time: 09/21/17 7580 I personally evaluated the patient and discussed the management with Dr. Beth. I agree with the History, Examination, Assessment and Plan documented above with any addition or exceptions noted below. Patient admitted for continued headache, new onset neck stiffness not present on last hospitalization, and CSF studies consistent with possible viral meningitis. She reports some improvement in headache. Her labs are consistent with a viral picture, and she will be continued on Acyclovir until HSV panel returns. We will defer on IV abx as this does not appear to be related to bacterial infection. She continues on Augmentin for sinusitis and tooth infection. Continue fluid hydration and pain control as needed. Awaiting viral panel results. <Aris Garcia - Last Filed: 09/21/17 12:01>
[2017-09-21] MEDS ORDERED: XIGDUO PO SCH (11:30)
[2017-09-21] MEDS ORDERED: Dexamethasone 4 mg/ml Vial SLOW IVP SCH (12:00)
[2017-09-21] MEDS ORDERED: Dexamethasone 20 MG/5 ML VIAL SLOW IVP SCH (12:00)
[2017-09-21] MEDS: XIGDUO PO SCH (16:05)
[2017-09-22] MEDS: Acetaminophen 325 MG TAB PO PRN ×2 (02:42→15:25)
[2017-09-22] MEDS: XIGDUO PO SCH ×2 (07:40→15:25)
[2017-09-22] MEDS: Enoxaparin Sodium 40 MG/0.4 ML SYRINGE SC SCH (07:43)
[2017-09-22] MEDS: Sodium Chloride 0.9% 1,000 ML IV SCH (07:50)
[2017-09-22] MEDS: Amoxicillin/Potassium Clav 500 MG TAB PO SCH ×2 (07:50→22:38)
--- NOTE | 2017-09-22 09:05 | PDOC.FM ---
- Subjective Subjective: No acute events overnight. Pt did have some headache and a little subjective neck stiffness this am although AROM remains intact. Negative brudzinski. Denies cp, sob, nvdc, fever, chills, sweats, changes in vision, lightheadedness , and dizziness. 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 - Objective Vital Signs & Weight: Vital Signs (12 hours) Temp Pulse Resp BP Pulse Ox 09/22/17 08:12 98.8 F 105 H 18 146/83 H 93 L 09/21/17 23:56 99.0 F 114 H 16 116/74 92 L 09/21/17 23:40 99.0 F 114 H 16 116/74 92 L I&O: 09/21/17 09/22/17 09/23/17 06:59 06:59 06:59 Intake Total 587 3450 Balance 587 3450 Result Diagrams: 09/21/17 04:39 09/21/17 04:39 <Demetrius Beth - Last Filed: 09/22/17 09:03> - Objective Vital Signs & Weight: Vital Signs (12 hours) Temp Pulse Resp BP Pulse Ox 09/22/17 11:37 98.8 F 113 H 18 134/89 95 09/22/17 08:12 98.8 F 105 H 18 146/83 H 93 L 09/22/17 08:00 98.8 F 105 H 18 93 L I&O: 09/21/17 09/22/17 09/23/17 06:59 06:59 06:59 Intake Total 587 3450 Balance 587 3450 Result Diagrams: 09/22/17 09:21 09/22/17 09:21 <Aris Garcia - Last Filed: 09/22/17 13:02> Phys Exam - Physical Examination Constitutional: NAD HEENT: PERRLA, sclera anicteric Neck: full ROM Respiratory: no wheezing, no rales, no rhonchi, clear to auscultation bilateral Cardiovascular: no significant murmur, no rub tachycardic Gastrointestinal: soft, non-tender, no distention, positive bowel sounds Musculoskeletal: no edema, pulses present Neurological: non-focal, moves all 4 limbs Psychiatric: normal affect Skin: no rash <Demetrius Beth - Last Filed: 09/22/17 09:03> Dx/Plan (1) Viral meningitis Code(s): A87.9 - VIRAL MENINGITIS, UNSPECIFIED Status: Acute (2) Headache Code(s): R51 - HEADACHE Status: Acute QualifierTitle: Headache type: unspecified Headache chronicity pattern: acute headache Intractability: not intractable Qualified Code(s): R51 - Headache (3) Tachycardia Code(s): R00.0 - TACHYCARDIA, UNSPECIFIED Status: Acute (4) Type II diabetes mellitus Status: Chronic QualifierTitle: Diabetes mellitus fci insulin use: without termite inspector use Diabetes mellitus complication status: with hyperglycemia Qualified Code (s): E11.65 - Type 2 diabetes mellitus with hyperglycemia (5) Dental infection Code(s): K04.7 - PERIAPICAL ABSCESS WITHOUT SINUS Status: Acute - Plan Plan: 1) Viral meningitis - CSF WBC 81, Prot 97, Glu 87, Lymph 80% - viral studies are still pending -will continue acyclovir in the mean time -pt reports some minor headache this am but overall improved since admission -hold IVF as pt is tolerating PO 2) Tachycardia - present on prior admission and persistent -spoke with PCP office on last admission who reports pulses in the high 90s to 110s on previous visits. Possibly 2/2 viral illness, but likely needs further OP investigation. -Hold IVF 3) Dental Infection - continue Augmentin until abx course completed. 4) DM2 - home meds -elevated BS on this visit -may need OP adjustment of medications, currently stable. <Demetrius Beth - Last Filed: 09/22/17 09:03> Attending Addendum - Attending Addendum Date/Time: 09/22/17 1301 I personally evaluated the patient and discussed the management with Dr. Beth. I agree with the History, Examination, Assessment and Plan documented above with any addition or exceptions noted below. Patient continues on Acyclovir for likely viral meningitis. Cultures negative to date and patient subjectively and objectively improved. Continue pain control and acyclovir until negative PCR for viral panel. Hope for discharge home in next 1-2 days. <Aris Garcia - Last Filed: 09/22/17 13:02>
[2017-09-22 09:30] LABS: #Basophils 0.1 thou/uL (0.0-0.2); #Eosinphils 0.1 thou/uL (0.0-0.7); #Lymphocytes 1.6 thou/uL (1.20-3.40); #Monocytes 0.4 thou/uL (0.11-0.59); #Neutrophils 4.4 thou/uL (1.40-6.50); %Basophils 0.9 % (0.0-1.0); %Eosinophils 1.7 % (0.0-10.0); %Lymphocytes 24.1 % (21.0-51.0); %Monocytes 6.1 % (0.0-10.0); %Neutrophils 67.2 % (42.0-75.0); Hemoglobin 13.4 g/dL (12.0-16.0); Mean Corpuscular HGB CONC 34.3 g/dL (32.0-36.0); Mean Corpuscular Hemoglobin 31.6 pg (27.0-31.0); Mean Corpuscular Volume 92.2 fl (81.0-99.0); Mean Platelet Volume 6.2 fL (7.4-10.4); Platelet Count 284 thou/uL (130-400); RBC Distribution Width 11.5 % (11.5-14.5); Red Blood Cell (RBC) Count 4.24 mill/uL (4.20-5.40); White Blood Cell (WBC) Count 6.5 thou/uL (4.8-10.8)
[2017-09-22 09:53] LABS: Anion Gap 9 mmol/L (10-20); BUN (Urea Nitrogen) 16 mg/dL (9.8-20.1); Calc. Creatinine Clearance 67 mL/min (70-130); Carbon Dioxide 30 mmol/L (23-31); Chloride 101 mmol/L (98-107); Estimated GFR-MDRD 69; Glucose 158 mg/dL (80-115); Potassium 3.8 mmol/L (3.5-5.1); Sodium 136 mmol/L (136-145)
[2017-09-22] MEDS: HYDROcodone/Acetaminophen 5/325 mg Tablet PO PRN ×2 (10:42→22:38)
[2017-09-22] MEDS: Famotidine 20 MG TAB PO SCH (22:38)
[2017-09-23 04:21] LABS: #Basophils 0.1 thou/uL (0.0-0.2); #Eosinphils 0.1 thou/uL (0.0-0.7); #Lymphocytes 1.9 thou/uL (1.20-3.40); #Monocytes 0.6 thou/uL (0.11-0.59); %Basophils 0.9 % (0.0-1.0); %Eosinophils 1.5 % (0.0-10.0); %Lymphocytes 24.4 % (21.0-51.0); %Monocytes 7.8 % (0.0-10.0); %Neutrophils 65.4 % (42.0-75.0); Hemoglobin 13.2 g/dL (12.0-16.0); Mean Corpuscular HGB CONC 34.7 g/dL (32.0-36.0); Mean Corpuscular Hemoglobin 31.6 pg (27.0-31.0); Mean Corpuscular Volume 91.3 fl (81.0-99.0); Mean Platelet Volume 6.3 fL (7.4-10.4); Platelet Count 288 thou/uL (130-400); RBC Distribution Width 11.5 % (11.5-14.5); Red Blood Cell (RBC) Count 4.17 mill/uL (4.20-5.40); White Blood Cell (WBC) Count 7.6 thou/uL (4.8-10.8)
[2017-09-23 04:30] LABS: Anion Gap 11 mmol/L (10-20); BUN (Urea Nitrogen) 11 mg/dL (9.8-20.1); Calc. Creatinine Clearance 71 mL/min (70-130); Calcium 8.9 mg/dL (7.8-10.44); Carbon Dioxide 30 mmol/L (23-31); Chloride 97 mmol/L (98-107); Estimated GFR-MDRD 74; Glucose 114 mg/dL (80-115); Potassium 3.6 mmol/L (3.5-5.1); Sodium 134 mmol/L (136-145)
[2017-09-23] MEDS: HYDROcodone/Acetaminophen 5/325 mg Tablet PO PRN (06:13)
[2017-09-23 07:51] VITALS: BP 128/80; TEMP 98.9
[2017-09-23] MEDS: XIGDUO PO SCH (08:41)
[2017-09-23] MEDS: Famotidine 20 MG TAB PO SCH (08:41)
[2017-09-23] MEDS: Enoxaparin Sodium 40 MG/0.4 ML SYRINGE SC SCH (08:47)
[2017-09-23] MEDS: Amoxicillin/Potassium Clav 500 MG TAB PO SCH (10:11)
--- NOTE | 2017-09-23 11:41 | PDOC.FM ---
- Subjective Subjective: No acute events overnight. Pt reports her pain is significantly improved. She denies headache, changes in vision, NVDC. No cp, sob, fever, chills or sweats. - Objective Vital Signs & Weight: Vital Signs (12 hours) Temp Pulse Resp BP Pulse Ox 09/23/17 08:00 98.9 F 114 H 18 09/23/17 07:50 98.9 F 114 H 18 128/80 94 L 09/23/17 00:00 98.7 F 112 H 18 135/80 97 I&O: 09/22/17 09/23/17 09/24/17 06:59 06:59 06:59 Intake Total 3450 1950 Balance 3450 1950 Result Diagrams: 09/23/17 03:48 09/23/17 03:48 <Demetrius Beth - Last Filed: 09/23/17 11:39> - Objective I&O: 09/23/17 09/24/17 09/25/17 06:59 06:59 06:59 Intake Total 1950 Balance 1950 Result Diagrams: 09/23/17 03:48 09/23/17 03:48 <Josef Jean - Last Filed: 09/24/17 11:47> Phys Exam - Physical Examination Constitutional: NAD HEENT: PERRLA, moist MMs, sclera anicteric Neck: no nodes, full ROM negative brudzinski Respiratory: no wheezing, no rales, no rhonchi Cardiovascular: RRR, no significant murmur Gastrointestinal: soft, non-tender, no distention, positive bowel sounds Musculoskeletal: no edema, pulses present Neurological: non-focal, moves all 4 limbs Psychiatric: normal affect Skin: no rash, cap refill <2 seconds <Demetrius Beth - Last Filed: 09/23/17 11:39> Dx/Plan (1) Viral meningitis Code(s): A87.9 - VIRAL MENINGITIS, UNSPECIFIED Status: Acute (2) Headache Code(s): R51 - HEADACHE Status: Acute QualifierTitle: Headache type: unspecified Headache chronicity pattern: acute headache Intractability: not intractable Qualified Code(s): R51 - Headache (3) Tachycardia Code(s): R00.0 - TACHYCARDIA, UNSPECIFIED Status: Acute (4) Type II diabetes mellitus Status: Chronic QualifierTitle: Diabetes mellitus correction insulin use: without correction use Diabetes mellitus complication status: with hyperglycemia Qualified Code (s): E11.65 - Type 2 diabetes mellitus with hyperglycemia (5) Dental infection Code(s): K04.7 - PERIAPICAL ABSCESS WITHOUT SINUS Status: Acute - Plan Plan: 1) Viral meningitis - CSF WBC 81, Prot 97, Glu 87, Lymph 80% - viral studies are still pending -f/u with viral studies OP -Pt is stable for DC with recommended f/u with PCP w/in 5-7 days. 2) Tachycardia - present on prior admission and persistent -spoke with PCP office on last admission who reports pulses in the high 90s to 110s on previous visits. Possibly 2/2 viral illness, but likely needs further OP investigation. -stable for DC 3) Dental Infection - continue Augmentin until abx course completed. Stable for DC 4) DM2 - home meds -elevated BS on this visit -recommend OP f/u, stable for DC <Demetrius Beth - Last Filed: 09/23/17 11:39> Attending Addendum - Attending Addendum Date/Time: 09/24/17 1146 I personally evaluated the patient and discussed the management with Dr. Beth I agree with the History, Examination, Assessment and Plan documented above with any addition or exceptions noted below. Stable symptoms of Viral Meningitis, continue to follow cultures and discharge planning with PCP follow up. <Josef Jean - Last Filed: 09/24/17 11:47>
[2017-09-23 20:08] LABS: HSV 2 - DNA Negative (Negative)
--- NOTE | 2017-09-24 00:26 | EKG ---
Test Reason : Blood Pressure : / mmHG Vent. Rate : 124 BPM Atrial Rate : 124 BPM P-R Int : 136 ms QRS Dur : 094 ms QT Int : 308 ms P-R-T Axes : 069 082 068 degrees QTc Int : 442 ms Sinus tachycardia Possible Left atrial enlargement Incomplete right bundle branch block Borderline ECG Confirmed by JAVI STYLES ([id number]), makeup editor NIKKI SANCHEZ ([id number] on 09/24/2017 12:25:30 AM Referred By: Confirmed By:JAVI STYLES
[2017-09-25 23:09] LABS: HSV-2 IgG Type Specific Less than 0.91 index (0.00-0.90)
--- NOTE | 2017-09-27 11:29 | DIS-2 ---
DATE OF SERVICE: 09/20/2017 LOCATION: [facility] in [place], [place]. DATE OF ADMISSION: 09/20/2017 DATE OF DISCHARGE: 09/23/2017 RESIDENT PHYSICIAN: Demetrius Barber. ADMITTING ATTENDING: Dr. Raf Jara. DISCHARGE ATTENDING: Dr. Josef Jean. CONSULTATIONS: None. PROCEDURES: 1. Chest x-ray done on 09/20/2017 showed no acute intrathoracic disease. Brain CT done on 09/20/2017 showed no acute intracranial process. No mass or bleed. 2. Lumbar puncture done on 09/20/2017 showed fluid WBC of 61 and 84 tubes 1-4 respectively, with 80% lymphocytes. Fluid segmented neutrophils were 5 and 11% . The CSF glucose was 86. CSF total protein was 97. Fluid pathology review showed a mixed population of lymphoid/lymphoplasmacytic cells and the patient suspecting viral meningitis. PRIMARY DIAGNOSES: 1. Viral meningitis. 2. Headache. SECONDARY DIAGNOSES: 1. Type 2 diabetes mellitus. 2. Tachycardia. 3. Dental infection. DISCHARGE MEDICATIONS: 1. Acetaminophen 650 mg p.o. q.4 hours. 2. Ibuprofen 800 mg q.8 hours p.r.n. for pain. 3. Xigduo 1 tablet p.o. b.i.d. 4. Augmentin 500 mg p.o. q.12 hours. DISCONTINUED MEDICATIONS: None. HISTORY OF PRESENT ILLNESS/HOSPITAL COURSE: The patient is a 62-year-old female , who presented back to the ED after a recent discharge for a sustained headache and noted her symptoms had worsened since going home. On admission, she states her headache was better when she left the hospital previously, but had acutely worsened the evening before she presented back to the ED and on initial presentation, she was complaining of severe pain and pressure and new onset neck stiffness, which she says started tonight. She denied any weakness, vision changes, or sensitivity to light and denied nausea and vomiting. She did report some dizziness. In the ED, the patient had a brain CT, which was negative for any acute process in addition to a lumbar puncture, which did show findings consistent with a viral meningitis. She was given vancomycin, Rocephin , and Decadron in the ED and subsequently transferred to the medical floor where the IV antibiotics were discontinued and the patient was switched to acyclovir for concern of a viral meningitis. Cultures were sent for herpes virus in addition to other laboratory studies. The patient HSV 1 and 2, IgM antibody was negative. HSV 1 IgG antibody was positive; however, the patient does have a history cold sores. HSV 2 IgG was negative. HSV 1 and 2, DNA PCR were negative. Herpes simplex culture was also negative. At this time, there is still pending labs and unfortunately that have not resulted, which include enterovirus PCR. The patient was continued while on IV acyclovir for approximately 2 days. Over the span of her hospital stay she required less pain medication to control her headache and prior to discharge, she was requiring only Tylenol and Motrin for pain. Regarding the patient's sinus tachycardia, she is persistently above 100 beats per minute IN 100-115 range, although she is asymptomatic through her previous admission. The patient was informed of this and subsequently recommended further outpatient evaluation. This hospital stay, the patient's oxygen saturations were within normal limits and her blood pressure was stable at 128/ 80; however, she did have a couple elevated pressure readings of 163/95 and 146/ 83. Additionally, the patient's glucose did range anywhere from 114-203 being maximum. This was on a consistent carb heart healthy diet here at the hospital. All other labs were within normal limits and the patient ultimately left the hospital in stable condition with continuing resolution of her headache. DISPOSITION: The patient left the hospital in stable condition. DISCHARGE INSTRUCTIONS: 1. Location: Home. 2. Diet: Heart healthy, consistent carbohydrates. 3. Activity: Ad wolfgang. 4. Followup with primary care physician Dr. Gomes. MADDY
== END 2017-09-23 15:09 | disposition home or self-care (01) | DRG 76 ==
LOC: ERS 18:35 → T4-A 23:54
PROVIDERS: ADMIT Family Medicine; ATTEND Family Medicine
PROC: 009U3ZX Drainage of Spinal Canal, Percutaneous Approach, Diagnostic (ICD-10-PCS; principal; 2017-09-21)
DX: R00.0 Tachycardia, unspecified; Z88.2 Allergy status to sulfonamides; I45.19 Other right bundle-branch block; Z86.19 Personal history of other infectious and parasitic diseases; A87.9 Viral meningitis, unspecified; K04.7 Periapical abscess without sinus; E11.65 Type 2 diabetes mellitus with hyperglycemia; Z79.84 Long term (current) use of oral hypoglycemic drugs; J32.9 Chronic sinusitis, unspecified
CPT/HCPCS: 36415; 36416; 70450; 71045; 80048; 80053; 81003; 81015; 82010; 82140; 82330; 82553; 82803; 82945; 83605; 84157; 84443; 84484; 85025; 85060; 86694; 86695; 86696; 87040; 87070; 87205; 87255; 87498; 87529; 87804; 89051; 93005; 96361; 96365; 96366; 96375; J2270; A4216; J0133; J0696; J1100; J1650; J2060; J2405; J3370; J7050; Q0162

== ENCOUNTER 2018-05-10 02:32 | Emergency (ER) | payer BC ==
[2018-05-10] MEDS ORDERED: methylPREDNISolone Sod Succ/PF 125 MG/2 ML VIAL ONE (03:31)
[2018-05-10] MEDS ORDERED: Metoclopramide HCl 10 MG/2 ML VIAL ONE (03:31)
[2018-05-10] MEDS ORDERED: Ketorolac Tromethamine 30 MG/ML VIAL ONE (03:31)
[2018-05-10] MEDS ORDERED: diphenhydrAMINE 50 MG/ML VIAL ONE (03:31)
[2018-05-10] MEDS ORDERED: Water For Inject, Bacteriostat 30 ML ONE (03:31)
[2018-05-10 03:53] LABS: #Basophils 0.1 thou/uL (0.0-0.2); #Eosinphils 0.2 thou/uL (0.0-0.7); #Lymphocytes 1.4 thou/uL (1.20-3.40); #Monocytes 0.8 thou/uL (0.11-0.59); %Basophils 0.9 % (0.0-1.0); %Eosinophils 2.2 % (0.0-10.0); %Lymphocytes 14.8 % (21.0-51.0); %Neutrophils 74.1 % (42.0-75.0); Hemoglobin 14.4 g/dL (12.0-16.0); Mean Corpuscular HGB CONC 32.8 g/dL (32.0-36.0); Mean Corpuscular Hemoglobin 30.5 pg (27.0-31.0); Mean Corpuscular Volume 92.9 fL (78.0-98.0); Mean Platelet Volume 7.7 fL (7.4-10.4); Platelet Count 324 thou/uL (130-400); White Blood Cell (WBC) Count 9.5 thou/uL (4.8-10.8)
[2018-05-10 03:57] LABS: Anion Gap 19 mmol/L (10-20); BUN (Urea Nitrogen) 18 mg/dL (9.8-20.1); Calc. Creatinine Clearance 0 mL/min (70-130); Calcium 9.1 mg/dL (7.8-10.44); Carbon Dioxide 21 mmol/L (23-31); Chloride 98 mmol/L (98-107); Estimated GFR-MDRD 45; Glucose 194 mg/dL (80-115); Potassium 4.2 mmol/L (3.5-5.1); Sodium 134 mmol/L (136-145)
== END 2018-05-10 07:02 | disposition home or self-care (01) ==
LOC: ERS 02:32
DX: R51 Headache (principal); E11.9 Type 2 diabetes mellitus without complications; Z79.899 Other long term (current) drug therapy
CPT/HCPCS: 80048; 85025; 85652; 86140; 93005; 96365; 96375; J1200; J1885; J2765; J2930

== ENCOUNTER 2018-08-27 11:06 | Outpatient (CLI) | payer BC ==
--- NOTE | 2018-08-27 12:15 | BD ---
DEXA BONE DENSITY STUDY: Date: 08/27/18 HISTORY: Postmenopausal. FINDINGS: Lumbar Spine: BMD (g/cm2) L1 0.810 T-Score: -1.6 L2 0.886 T-Score: -1.3 L3 0.841 T-Score: -2.2 L4 0.800 T-Score: -2.4 Total 0.833 T-Score: -1.9 Left Femoral Neck: 0.640 T-Score: -1.9 Total Femur: 0.832 T-Score: -0.9 IMPRESSION: 1. Osteopenia of the lumbar spine and left femoral neck. 2. 10 year fracture for major osteoporotic fracture is 9% and hip fracture is 1.1%. These fracture p robabilities are calculated for an untreated patient. POS: TPC
--- NOTE | 2018-08-27 13:43 | MMO ---
Bilateral MAMMO Bilat Screen [facility]. CLINICAL HISTORY: Patient is 63 years old and is seen for screening. The patient has no family history of breast cancer. The patient has no personal history of cancer. The patient has a history of left needle biopsy more than 10 years ago - benign - MAYBE 30 YEARS AGO. VIEWS: The views performed were: bilateral craniocaudal with tomosynthesis and bilateral mediolateral oblique with tomosynthesis. FILMS COMPARED: The present examination has been compared to prior imaging studies performed at [facility] on 07/23/2001, 06/23/2005, 01/24/2008, 05/29/2009, 05/31/2010, 06/02/2011, 06/05/2012, 06/09/2014, 06/10/2015, 06/14/2016 and 06/21/2017. MAMMOGRAM FINDINGS: There are scattered fibroglandular densities. There are benign appearing calcifications seen in both breasts. There are no suspicious masses, calcifications or areas of architectural distortion. IMPRESSION: CALCIFICATIONS IN BOTH BREASTS ARE BENIGN. A ROUTINE FOLLOW-UP MAMMOGRAM IN 1 YEAR IS RECOMMENDED. THE RESULTS OF THIS EXAM WERE SENT TO THE PATIENT. ACR BI-RADS Category 2 - Benign finding MAMMOGRAPHY NOTE: 1. A negative mammogram report should not delay a biopsy if a dominant of clinically suspicious mass is present. 2. Approximately 10% to 15% of breast cancers are not detected by mammography. 3. Adenosis and dense breasts may obscure an underlying neoplasm.
== END 2018-08-27 11:07 | disposition home or self-care (01) ==
LOC: BICMAMMO 11:06
PROVIDERS: ATTEND Family Medicine
DX: Z12.31 Encounter for screening mammogram for malignant neoplasm of breast (principal); Z13.820 Encounter for screening for osteoporosis; R92.1 Mammographic calcification found on diagnostic imaging of breast; M85.89 Other specified disorders of bone density and structure, multiple sites; Z78.0 Asymptomatic menopausal state; Z98.890 Other specified postprocedural states
CPT/HCPCS: 77063; 77067; 77080

== ENCOUNTER 2018-12-06 10:01 | Outpatient (CLI) | payer BC ==
--- NOTE | 2018-12-06 11:12 | RAD ---
RIGHT FINGERS THREE VIEWS: HISTORY: Right finger injury. FINDINGS: Image is centered on the ring finger. Joint space narrowing, osteophytosis, and subchondral sclerosi s at the interphalangeal joints. No acute fracture, dislocation, or radiopaque foreign bodies. IMPRESSION: 1. Moderate osteoarthritic changes. 2. No acute osseous abnormalities demonstrated. POS: TPC
--- NOTE | 2018-12-06 11:14 | RAD ---
RIGHT SHOULDER THREE VIEWS: HISTORY: Right shoulder pain. FINDINGS: Acromioclavicular and glenohumeral alignment are maintained with mild osteophytosis. Subtle cortical remodeling of the distal clavicle is consistent with the historically stated old injury. No acute f racture, dislocation, or aggressive osseous erosions. IMPRESSION: Very mild osteoarthritic changes, right shoulder. POS: [facility]
== END 2018-12-06 10:02 | disposition home or self-care (01) ==
LOC: BICRAD 10:01
PROVIDERS: ATTEND Family Medicine
DX: M25.511 Pain in right shoulder (principal); M79.641 Pain in right hand; M19.011 Primary osteoarthritis, right shoulder

== ENCOUNTER 2019-04-19 15:01 | Outpatient (CLI) | payer BC ==
--- NOTE | 2019-04-19 15:50 | ULT ---
US Renal Bilateral STANDARD History: Chronic kidney disease Comparison: None. Findings: Real-time grayscale and color evaluation of the kidneys was performed. Right kidney measures 9.6 x 4 x 4.5 cm the left kidney measures 10.7 x 4.4 x 4.4 cm. The urinary blad naren is unremarkable. No renal mass, hydronephrosis, or abnormal calcifications. Impression: No evidence for obstructive uropathy.
== END 2019-04-19 15:02 | disposition home or self-care (01) ==
LOC: BICULT 15:01
PROVIDERS: ATTEND Internal Medicine
DX: N18.3 Chronic kidney disease, stage 3 (moderate) (principal)
CPT/HCPCS: 76770

== ENCOUNTER 2019-06-27 13:12 | Outpatient (CLI) | payer BC ==
[2019-06-27 13:33] LABS: #Basophils 0.1 thou/uL (0.0-0.2); #Eosinphils 0.2 thou/uL (0.0-0.7); #Lymphocytes 1.2 thou/uL (1.20-3.40); #Monocytes 0.7 thou/uL (0.11-0.59); #Neutrophils 3.5 thou/uL (1.40-6.50); %Eosinophils 3.1 % (0.0-10.0); %Lymphocytes 21.3 % (21.0-51.0); %Monocytes 11.9 % (0.0-10.0); %Neutrophils 61.8 % (42.0-75.0); Hemoglobin 14.7 g/dL (12.0-16.0); Mean Corpuscular HGB CONC 33.7 g/dL (32.0-36.0); Mean Corpuscular Hemoglobin 31.3 pg (27.0-31.0); Mean Corpuscular Volume 92.9 fL (78.0-98.0); Mean Platelet Volume 7.1 fL (7.4-10.4); Platelet Count 260 thou/uL (130-400); RBC Distribution Width 11.7 % (11.5-14.5); Red Blood Cell (RBC) Count 4.69 mill/uL (4.20-5.40); White Blood Cell (WBC) Count 5.7 thou/uL (4.8-10.8)
[2019-06-27 13:57] LABS: ALT (SGPT) 15 U/L (8-55); AST (SGOT) 14 U/L (5-34); Albumin 4.3 g/dL (3.4-4.8); Alkaline Phosphatase 117 U/L (40-110); Anion Gap 13 mmol/L (10-20); BUN (Urea Nitrogen) 15 mg/dL (9.8-20.1); Bilirubin, Total 0.7 mg/dL (0.2-1.2); Calc. Creatinine Clearance 0 mL/min (70-130); Calcium 9.3 mg/dL (7.8-10.44); Carbon Dioxide 31 mmol/L (23-31); Chloride 97 mmol/L (98-107); Estimated GFR-MDRD 59; Glucose 120 mg/dL (80-115); Potassium 3.6 mmol/L (3.5-5.1); Protein, Total 7.3 g/dL (6.0-8.3); Sodium 137 mmol/L (136-145)
[2019-06-27 14:14] LABS: MONO NEGATIVE CONTROL ZONE White (Negative) (White); MONO POSITIVE CONTROL Pink Line (Positive) (PINK/RED); Mononucleosis NEGATIVE (NEGATIVE)
[2019-06-27] MEDS ORDERED: Magnevist 469MG/ML 20 ML VIAL ONE (14:19)
[2019-06-27 14:21] LABS: Thyroid Stimulating Hormone 2.7196 uIU/mL (0.35-4.94)
--- NOTE | 2019-06-27 15:16 | MRI ---
BRAIN MRI AND ORBIT MRI WITH AND WITHOUT CONTRAST: HISTORY: Absent pupil reaction. Acute headache. COMPARISON: None. FINDINGS: Brain MRI: Hemorrhage: No parenchymal hemorrhage. No extra-axial hematoma. Calvarium: Appropriate T1 marrow signal intensity. Midline brain parenchyma: Unremarkable. Cerebrum:No parenchymal mass, mass effect or midline shift. Brain volume, age-appropriate. Ventricles: No evidence of hydrocephalus. Sinuses and mastoid air cells: Adequate aeration. Diffusion: Central arterial flow is maintained. Absent restricted diffusion. Postcontrast images: No pathologic enhancement of the brain parenchyma. Orbit MRI: Symmetric signal intensity of the ocular rectus muscles. Symmetric signal intensity of the optic nerv es. Unremarkable optic chiasm. Bilateral ocular lenses are appropriately located. Both globes are intact. Retrobulbar fat is preserv ed. No abnormal signal intensity in the extraconal or intraconal space. Lacrimal glands are unremarkable. IMPRESSION: 1. Unremarkable pre and postcontrast brain MRI. 2. Unremarkable orbit MRI.
== END 2019-06-27 13:13 | disposition home or self-care (01) ==
LOC: MRI 13:12
PROVIDERS: ATTEND Internal Medicine
DX: H57.09 Other anomalies of pupillary function (principal); R51 Headache; R53.83 Other fatigue; R53.1 Weakness
CPT/HCPCS: 70553; 80053; 82607; 84443; 85025; 86308; A9579

== ENCOUNTER 2019-11-01 10:59 | Outpatient (CLI) | payer BC ==
--- NOTE | 2019-11-01 11:35 | MMO ---
Bilateral MAMMO Bilat Screen [facility]. CLINICAL HISTORY: Patient is 64 years old and is seen for screening. The patient has no family history of breast cancer. The patient has no personal history of cancer. The patient has a history of left needle biopsy more than 10 years ago - benign - MAYBE 30 YEARS AGO. VIEWS: The views performed were: bilateral craniocaudal with tomosynthesis and bilateral mediolateral oblique with tomosynthesis. FILMS COMPARED: The present examination has been compared to prior imaging studies performed at [facility] on 06/14/2016, 06/21/2017 and 08/27/2018. This study has been interpreted with the assistance of computer-aided detection. MAMMOGRAM FINDINGS: There are scattered fibroglandular densities. There are stable benign appearing calcifications seen in both breasts. There are no suspicious masses, suspicious calcifications, or new areas of architectural distortion. IMPRESSION: THERE IS NO MAMMOGRAPHIC EVIDENCE OF MALIGNANCY. A ROUTINE FOLLOW-UP MAMMOGRAM IN 1 YEAR IS RECOMMENDED. THE RESULTS OF THIS EXAM WERE SENT TO THE PATIENT. ACR BI-RADS Category 2 - Benign finding MAMMOGRAPHY NOTE: 1. A negative mammogram report should not delay a biopsy if a dominant of clinically suspicious mass is present. 2. Approximately 10% to 15% of breast cancers are not detected by mammography. 3. Adenosis and dense breasts may obscure an underlying neoplasm. Reported by: TRUPTI FAUSTIN MD Electonically Signed: [id number]
== END 2019-11-01 11:00 | disposition home or self-care (01) ==
LOC: BICMAMMO 10:59
PROVIDERS: ATTEND Internal Medicine
DX: Z12.31 Encounter for screening mammogram for malignant neoplasm of breast (principal); Z91.89 Other specified personal risk factors, not elsewhere classified
CPT/HCPCS: 77063; 77067

== ENCOUNTER 2021-06-15 14:24 | Outpatient (CLI) | payer BC | END 2021-06-15 14:25 | disposition home or self-care (01) | LOC: BICRAD 14:24 | PROVIDERS: ATTEND Internal Medicine | DX: M25.551 Pain in right hip (principal); M79.671 Pain in right foot; S92.354A Nondisplaced fracture of fifth metatarsal bone, right foot, initial encounter for closed fracture ==

== ENCOUNTER 2021-10-29 22:56 | Observation (INO) | payer BC ==
[2021-10-29 23:25] VITALS: BMI 21.5
[2021-10-29] MEDS ORDERED: Bisacodyl 5 MG TAB PO PRN (23:51)
[2021-10-29] MEDS ORDERED: Senokot S 8.6-50 MG TAB PO PRN (23:51)
[2021-10-29] MEDS ORDERED: Acetaminophen 325 MG TAB PO PRN (23:51)
[2021-10-29] MEDS ORDERED: Ondansetron PF 4 MG/2 ML Vial IVP PRN (23:51)
[2021-10-30] MEDS ORDERED: Melatonin 3 MG TAB PO PRN (00:01)
[2021-10-30] MEDS ORDERED: Nitroglycerin 0.4 MG TAB (25 Tab Bottle) SL PRN (00:01)
[2021-10-30] MEDS ORDERED: Pantoprazole 40 MG VIAL IVP SCH ×2 (00:03→09:00)
[2021-10-30] MEDS ORDERED: Morphine 2 MG/ML VIAL SLOW IVP PRN ×2 (00:04)
[2021-10-30] MEDS ORDERED: Atorvastatin Calcium 20 MG TAB PO SCH (00:15)
[2021-10-30] MEDS ORDERED: Lidocaine 2% Viscous Solution 20 ML, Aluminum & Magnesium Hydroxide 30 ML, Donnatal Eli... SSW SCH (00:15)
[2021-10-30] MEDS ORDERED: Aspirin Chewable 81 MG TAB PO SCH (00:52)
[2021-10-30 00:57] LABS: Troponin I Less than 0.010 ng/mL (< 0.028)
[2021-10-30] MEDS ORDERED: HumaLOG 300 UNITS/3 ML VIAL SC PRN ×2 (01:04)
[2021-10-30] MEDS ORDERED: Dextrose 5% in Water 1,000 ML IV PRN (01:04)
[2021-10-30] MEDS ORDERED: Dextrose 50% Abboject 50 ML SYRINGE SLOW IVP PRN (01:04)
[2021-10-30] MEDS: Sodium Chloride 0.9% 1,000 ML IV SCH ×2 (01:29→19:12)
[2021-10-30 03:28] LABS: Troponin I Less than 0.010 ng/mL (< 0.028)
[2021-10-30 06:08] LABS: #Eosinphils 0.1 thou/uL (0.0-0.7); #Lymphocytes 1.5 thou/uL (1.20-3.40); #Monocytes 0.5 thou/uL (0.11-0.59); #Neutrophils 3.9 thou/uL (1.40-6.50); %Basophils 0.7 % (0.0-1.0); %Eosinophils 1.6 % (0.0-10.0); %Lymphocytes 25.1 % (21.0-51.0); %Monocytes 7.5 % (0.0-10.0); Hemoglobin 13.6 g/dL (12.0-16.0); Mean Corpuscular HGB CONC 33.5 g/dL (32.0-36.0); Mean Corpuscular Hemoglobin 31.5 pg (27.0-31.0); Mean Corpuscular Volume 93.8 fL (78.0-98.0); Mean Platelet Volume 7.1 fL (7.4-10.4); Platelet Count 267 thou/uL (130-400); RBC Distribution Width 11.8 % (11.5-14.5); Red Blood Cell (RBC) Count 4.34 mill/uL (4.20-5.40); White Blood Cell (WBC) Count 6.1 thou/uL (4.8-10.8)
[2021-10-30 06:16] LABS: Hemoglobin A1c 7.4 % (4.0-6.0)
[2021-10-30 06:24] LABS: ALT (SGPT) 14 U/L (8-55); AST (SGOT) 15 U/L (5-34); Albumin 3.6 g/dL (3.4-4.8); Alkaline Phosphatase 79 U/L (40-110); Anion Gap 15 mmol/L (10-20); BUN (Urea Nitrogen) 9 mg/dL (9.8-20.1); Bilirubin, Total 0.7 mg/dL (0.2-1.2); Calc. Creatinine Clearance 73 mL/min (70-130); Calcium 8.5 mg/dL (7.8-10.44); Carbon Dioxide 25 mmol/L (23-31); Cardiac Risk 2.7 (Less than 4.5); Chloride 104 mmol/L (98-107); Cholesterol 102 mg/dl (< 200 Desired); Globulin 2.5 g/dL (2.4-3.5); Glucose 115 mg/dL (80-115); HDL Cholesterol 38 mg/dL (>60 Neg Risk); LDL Cholesterol, Calculated 46 mg/dL; Potassium 3.6 mmol/L (3.5-5.1); Protein, Total 6.1 g/dL (5.8-8.1); Sodium 140 mmol/L (136-145); Triglycerides 89 mg/dL (Less than 150)
[2021-10-30 06:27] LABS: Troponin I Less than 0.010 ng/mL (< 0.028)
[2021-10-30] MEDS ORDERED: Empagliflozin 25 MG TAB PO SCH (09:00)
[2021-10-30] MEDS ORDERED: ADENOSINE 60 MG/20 ML VIAL ONE (09:29)
[2021-10-30 16:09] VITALS: TEMP 98.4
[2021-10-30 17:13] VITALS: BP 127/80
[2021-10-30] MEDS ORDERED: Atorvastatin Calcium 10 MG TAB PO SCH (21:00)
[2021-10-30] MEDS ORDERED: Aspirin 81 mg Enteric Coated Tablet PO SCH (21:00)
[2021-10-31] MEDS ORDERED: Pantoprazole 40 MG VIAL IVP SCH (01:00)
== END 2021-10-30 19:45 | disposition home or self-care (01) ==
LOC: NEURO 22:59
PROVIDERS: ADMIT Internal Medicine; ATTEND Internal Medicine
DX: R07.9 Chest pain, unspecified (principal); I95.1 Orthostatic hypotension; E11.9 Type 2 diabetes mellitus without complications; E78.5 Hyperlipidemia, unspecified; R51.9 Headache, unspecified; I10 Essential (primary) hypertension; R42 Dizziness and giddiness; Z79.82 Long term (current) use of aspirin; Z79.84 Long term (current) use of oral hypoglycemic drugs; Z79.899 Other long term (current) drug therapy; Z88.2 Allergy status to sulfonamides
CPT/HCPCS: 36415; 36416; 70551; 78452; 80053; 80061; 82533; 83036; 84443; 84484; 85025; 85379; 93017; 93880; 94760; 96374; A9500; C9113; G0378; J0153; J1815; J7050

== ENCOUNTER 2022-05-13 09:10 | Emergency (ER) | payer BC ==
[2022-05-13] MEDS ORDERED: Morphine 4 MG/ML VIAL ONE ×2 (09:22→10:10)
[2022-05-13] MEDS ORDERED: Ondansetron PF 4 MG/2 ML Vial ONE (09:22)
[2022-05-13] MEDS ORDERED: Ketorolac Tromethamine 30 MG/ML VIAL ONE (10:10)
[2022-05-13] MEDS ORDERED: FENTANYL 50 MCG/ML 1 ML VIAL ONE (11:18)
== END 2022-05-13 12:55 | disposition home or self-care (01) ==
LOC: ERS 09:10
DX: S42.402A Unspecified fracture of lower end of left humerus, initial encounter for closed fracture (principal); W55.12XA Struck by horse, initial encounter; E11.9 Type 2 diabetes mellitus without complications
CPT/HCPCS: 29105; 70450; 93005; 94760; 96374; 96375; 96376; J1885; J2270; J2405; J3010

== ENCOUNTER 2022-09-16 15:45 | Outpatient (CLI) | payer BC ==
[2022-09-16 16:29] LABS: #Eosinphils 0.2 10x3/uL (0.0-0.5); #Monocytes 0.6 10x3/uL (0.0-1.1); #Neutrophils 4.3 10x3/uL (1.5-8.4); %Basophils 0.3 % (0.0-2.0); %Eosinophils 3.9 % (0.0-6.0); %Lymphocytes 16.5 % (18.0-47.0); %Neutrophils 70.1 % (40.0-75.0); Hemoglobin 13.7 g/dL (12.0-15.5); Mean Corpuscular HGB CONC 33.1 g/dL (32.0-36.0); Mean Corpuscular Hemoglobin 30.4 pg (27.0-33.0); Mean Corpuscular Volume 91.8 fl (81.6-98.3); Mean Platelet Volume 9.8 fl (7.4-10.4); Platelet Count 263 10x3/uL (150-450); Red Blood Cell (RBC) Count 4.51 10x6/uL (3.90-5.03); White Blood Cell (WBC) Count 6.1 10x3/uL (3.5-10.5)
[2022-09-16 16:53] LABS: ALT (SGPT) 19 U/L (8-55); AST (SGOT) 18 U/L (5-34); Albumin 4.1 g/dL (3.4-4.8); Alkaline Phosphatase 174 U/L (40-110); Anion Gap 12 mmol/L (10-20); BUN (Urea Nitrogen) 21 mg/dL (9.8-20.1); Bilirubin, Total 0.4 mg/dL (0.2-1.2); Calc. Creatinine Clearance 0 mL/min (70-130); Calcium 9.5 mg/dL (7.8-10.44); Carbon Dioxide 30 mmol/L (23-31); Chloride 100 mmol/L (98-107); Estimated GFR 67; Globulin 2.6 g/dL (2.4-3.5); Glucose 196 mg/dL (80-115); Potassium 3.9 mmol/L (3.5-5.1); Protein, Total 6.7 g/dL (5.8-8.1); Sodium 138 mmol/L (136-145)
[2022-09-16 21:09] LABS: Hemoglobin A1c 7.5 % (4.0-6.0)
== END 2022-09-16 15:46 | disposition home or self-care (01) ==
LOC: LABBT 15:45
PROVIDERS: ATTEND Orthopaedic Surgery
DX: Z01.812 Encounter for preprocedural laboratory examination (principal); S42.322K Displaced transverse fracture of shaft of humerus, left arm, subsequent encounter for fracture with nonunion
CPT/HCPCS: 80053; 83036; 84443

== ENCOUNTER 2022-09-20 05:42 | Observation (INO) | payer BC ==
[2022-09-16 13:20] VITALS: BMI 21.1
[2022-09-20] MEDS ORDERED: fentaNYL PF 100 MCG/2 ML SYRINGE ONE (06:10)
[2022-09-20] MEDS ORDERED: fentaNYL 50 mcg/mL 1 mL Vial ONE (06:10)
[2022-09-20] MEDS ORDERED: Midazolam HCl 2 mg/2 ml Vial ONE (06:10)
[2022-09-20] MEDS ORDERED: Sodium Chloride 0.9% 100 ML ONE (07:01)
[2022-09-20] MEDS ORDERED: CEFAZOLIN 2 GM VIAL ONE (07:01)
[2022-09-20] MEDS ORDERED: Dexamethasone 20 MG/5 ML VIAL ONE (07:05)
[2022-09-20] MEDS ORDERED: Ondansetron PF 4 MG/2 ML Vial ONE (07:05)
[2022-09-20] MEDS ORDERED: Phenylephrine 10 MG/ML VIAL ONE (07:05)
[2022-09-20] MEDS ORDERED: GLYCOPYRROLATE/PF 0.2 MG/ML VIAL ONE (07:05)
[2022-09-20] MEDS ORDERED: NEOSTIGMINE 3 MG/3 ML SYR 3 MG/3 ML SYRINGE ONE (07:05)
[2022-09-20] MEDS ORDERED: PROPOFOL 200 MG/20 ML VIAL ONE (07:05)
[2022-09-20] MEDS ORDERED: Rocuronium Bromide 10 MG/ML (10ML VIAL) ONE (07:05)
[2022-09-20] MEDS ORDERED: fentaNYL 50 mcg/mL 1 mL Vial SLOW IVP PRN (07:34)
[2022-09-20] MEDS ORDERED: Ropivacaine 0.2% HCl/PF 20 ML ONE (07:39)
[2022-09-20] MEDS ORDERED: Ropivacaine 0.5% HCl/PF (150 MG/30 ML VIAL) ONE (07:39)
[2022-09-20] MEDS ORDERED: Zolpidem Tartrate 5 MG TAB PO PRN (07:45)
[2022-09-20] MEDS ORDERED: HYDROcodone/Acetaminophen 10/325 mg Tablet PO PRN ×2 (07:45)
[2022-09-20] MEDS ORDERED: Promethazine HCl 25 MG/ML VIAL IM PRN (07:45)
[2022-09-20] MEDS ORDERED: Ropivacaine 0.2% 550 ML 550 ML NERVE BLCK SCH (07:45)
[2022-09-20] MEDS ORDERED: traMADol HCl 50 MG TAB PO PRN ×2 (07:45)
[2022-09-20] MEDS ORDERED: Ondansetron PF 4 MG/2 ML Vial IVP PRN (07:45)
[2022-09-20] MEDS ORDERED: Fentanyl 100 MCG/2 ML VIAL SLOW IVP PRN (10:21)
[2022-09-20] MEDS ORDERED: Milk Of Magnesia 30 ML UDCUP PO PRN (10:21)
[2022-09-20] MEDS ORDERED: Morphine 2 MG/ML VIAL SLOW IVP PRN (10:21)
[2022-09-20] MEDS ORDERED: Bisacodyl 10 MG SUPP PR PRN (10:21)
[2022-09-20] MEDS ORDERED: Communication Order-Pharmacy FS SCH (10:21)
[2022-09-20] MEDS ORDERED: Morphine 4 MG/ML VIAL SLOW IVP PRN (10:21)
[2022-09-20] MEDS ORDERED: Promethazine HCl 25 MG/ML VIAL ONE (10:26)
[2022-09-20] MEDS ORDERED: Ketorolac Tromethamine 30 MG/ML VIAL ONE (12:03)
[2022-09-20] MEDS: Ketorolac Tromethamine 30 MG/ML VIAL IVP SCH ×3 (12:05→23:25)
[2022-09-20] MEDS: CEFAZOLIN 2 GM in Sodium Chloride 0.9% 100 ML IVPB SCH ×2 (15:25→23:25)
[2022-09-20] MEDS: Aspirin 81 mg Enteric Coated Tablet PO SCH (20:43)
[2022-09-21] MEDS: Ketorolac Tromethamine 30 MG/ML VIAL IVP SCH ×2 (03:32→05:20)
[2022-09-21 06:03] LABS: #Lymphocytes 1.4 thou/uL (1.20-3.40); #Monocytes 0.6 thou/uL (0.11-0.59); #Neutrophils 5.5 thou/uL (1.40-6.50); %Basophils 0.3 % (0.0-1.0); %Eosinophils 0.2 % (0.0-10.0); %Monocytes 7.5 % (0.0-10.0); Mean Corpuscular HGB CONC 33.4 g/dL (32.0-36.0); Mean Corpuscular Hemoglobin 31.5 pg (27.0-31.0); Mean Corpuscular Volume 94.2 fl (78.0-98.0); Platelet Count 176 10x3/uL (130-400); RBC Distribution Width 12.2 % (11.5-14.5); Red Blood Cell (RBC) Count 3.82 mill/uL (4.20-5.40); White Blood Cell (WBC) Count 7.6 10x3/uL (4.8-10.8)
[2022-09-21 06:24] LABS: ALT (SGPT) 14 U/L (8-55); AST (SGOT) 19 U/L (5-34); Albumin 3.1 g/dL (3.4-4.8); Alkaline Phosphatase 107 U/L (40-110); Anion Gap 9 mmol/L (10-20); BUN (Urea Nitrogen) 24 mg/dL (9.8-20.1); Bilirubin, Total 0.3 mg/dL (0.2-1.2); Calc. Creatinine Clearance 64 mL/min (70-130); Calcium 8.2 mg/dL (7.8-10.44); Carbon Dioxide 26 mmol/L (23-31); Chloride 105 mmol/L (98-107); Estimated GFR 77; Globulin 2.4 g/dL (2.4-3.5); Glucose 177 mg/dL (80-115); Potassium 3.9 mmol/L (3.5-5.1); Protein, Total 5.5 g/dL (5.8-8.1); Sodium 136 mmol/L (136-145)
[2022-09-21] MEDS: Aspirin 81 mg Enteric Coated Tablet PO SCH (08:22)
[2022-09-21 12:10] VITALS: BP 109/68; TEMP 98.6
== END 2022-09-21 12:10 | disposition home or self-care (01) ==
LOC: SDC 05:42 → SURG B 10:21
PROVIDERS: ADMIT Orthopaedic Surgery; ATTEND Orthopaedic Surgery
PROC: 0PSG04Z Reposition Left Humeral Shaft with Internal Fixation Device, Open Approach (ICD-10-PCS; principal; 2022-09-20)
PROC: 0PUG07Z Supplement Left Humeral Shaft with Autologous Tissue Substitute, Open Approach (ICD-10-PCS; 2022-09-20)
DX: S42.332K Displaced oblique fracture of shaft of humerus, left arm, subsequent encounter for fracture with nonunion (principal); E11.9 Type 2 diabetes mellitus without complications; Z79.82 Long term (current) use of aspirin; Z79.84 Long term (current) use of oral hypoglycemic drugs; Z79.85 Long-term (current) use of injectable non-insulin antidiabetic drugs; Z79.899 Other long term (current) drug therapy; Z88.2 Allergy status to sulfonamides; W55.19XD Other contact with horse, subsequent encounter
CPT/HCPCS: 36415; 36416; 80053; 85025; 96365; A4306; C1713; G0378; J1100; J1885; J2250; J2370; J2405; J2550; J2704; J2795; J3010; J3490

== ENCOUNTER 2023-07-06 12:38 | Outpatient (CLI) | payer BC | END 2023-07-06 12:39 | disposition home or self-care (01) | LOC: BICMAMMO 12:38 | PROVIDERS: ATTEND Internal Medicine | DX: Z12.31 Encounter for screening mammogram for malignant neoplasm of breast (principal); Z91.89 Other specified personal risk factors, not elsewhere classified | CPT/HCPCS: 77063; 77067 ==

== ENCOUNTER 2023-11-18 17:05 | Emergency (ER) | payer MEDICARE, OTHER ==
[2023-11-18] MEDS ORDERED: Boostrix 0.5 ML (Tdap) VIAL (>/=7 yrs of age) ONE (17:59)
== END 2023-11-18 18:42 | disposition home or self-care (01) ==
LOC: ERS 17:05
DX: S61.211A Laceration without foreign body of left index finger without damage to nail, initial encounter (principal); E11.9 Type 2 diabetes mellitus without complications; W26.8XXA Contact with other sharp object(s), not elsewhere classified, initial encounter
CPT/HCPCS: 12001; 90471; 90715; 99282

== ENCOUNTER 2023-12-08 06:57 | Outpatient (CLI) | payer MEDICARE, OTHER | END 2023-12-08 06:58 | disposition home or self-care (01) | LOC: BICULT 06:57 | PROVIDERS: ATTEND Internal Medicine | DX: R74.8 Abnormal levels of other serum enzymes (principal) | CPT/HCPCS: 76705 ==

== ENCOUNTER 2024-02-07 14:11 | Outpatient (CLI) | payer MEDICARE, OTHER | END 2024-02-07 14:12 | disposition home or self-care (01) | LOC: BICRAD 14:11 | PROVIDERS: ATTEND Internal Medicine | DX: M79.641 Pain in right hand (principal); M19.041 Primary osteoarthritis, right hand ==

== ENCOUNTER 2025-01-29 09:40 | Outpatient (CLI) | payer MEDICARE, OTHER | END 2025-01-29 09:41 | disposition home or self-care (01) | LOC: BICMAMMO 09:40 | PROVIDERS: ATTEND Internal Medicine | DX: Z78.0 Asymptomatic menopausal state (principal); M81.0 Age-related osteoporosis without current pathological fracture | CPT/HCPCS: 77080 ==